=== PATIENT | female | born 1970 | race Caucasian/White ===

== ENCOUNTER 2022-05-06 13:41 | Emergency (ER) | payer OTHER | END 2022-05-06 15:03 | disposition home or self-care (01) | LOC: VM.ED 13:41 | DX: S60.221A Contusion of right hand, initial encounter (principal); S60.021A Contusion of right index finger without damage to nail, initial encounter; S60.051A Contusion of right little finger without damage to nail, initial encounter; S60.031A Contusion of right middle finger without damage to nail, initial encounter; S60.041A Contusion of right ring finger without damage to nail, initial encounter; S60.011A Contusion of right thumb without damage to nail, initial encounter; Z88.8 Allergy status to other drugs, medicaments and biological substances; Z88.0 Allergy status to penicillin; F41.9 Anxiety disorder, unspecified; Z79.899 Other long term (current) drug therapy; Y04.0XXA Assault by unarmed brawl or fight, initial encounter | CPT/HCPCS: 73110-RT; 73130-RT; 99283 ==